=== PATIENT | male | born 1970 | race Caucasian/White ===

== ENCOUNTER 2017-03-27 18:47 | Emergency (ER) | payer MEDICARE ==
[~2017-03-27] VITALS: Ht 175.3 cm; Wt 107.8 kg
[2017-03-27 18:52] VITALS: TEMP 98.2
[2017-03-27 19:46] LABS: PROTHROMBIN TIME 11.3 SECONDS (9.7-12.8)
[2017-03-27 19:49] LABS: PARTIAL THROMBOPLASTIN TIME 30.4 SECONDS (26.0-37.0)
[2017-03-27 19:50] LABS: ADJUSTED CALCIUM 9.4 mg/dL (8.4-10.2); ALANINE AMINOTRANSFERASE 36 U/L (21-72); ALBUMIN 4.5 gm/dL (3.5-5.0); ALKALINE PHOSPHATASE 76 U/L (50-136); ANION GAP 10 mmol/L (7-16); BASO # 0.1 (0.0-0.2); BASO % 0.9 % (0.0-2.0); BILIRUBIN,TOTAL 0.6 mg/dL (0.0-1.0); BLOOD UREA NITROGEN 18 mg/dL (9-20); CALCIUM 9.8 mg/dL (8.4-10.2); CARBON DIOXIDE 27 mmol/L (22-30); CHLORIDE 102 mmol/L (98-107); CREATININE, serum 0.99 mg/dL (0.66-1.25); EOS # 0.3 (0.0-0.7); EOS % 3.8 % (0-4.0); GLUCOSE 95 mg/dL (74-106); GRAN # 5.2 (1.4-6.5); GRAN % 58.7 % (42.2-75.2); HEMATOCRIT 47.4 % (42.0-52.0); LYMPH # 2.5 (1.2-3.4); LYMPH % 28.3 % (20.0-51.0); MEAN CELL VOLUME 85 fl (80.0-100.0); MEAN CORPUSCULAR HEMOGLOBIN 29 pg (27.0-31.0); MEAN CORPUSCULAR HGB CONC 34 g/dl (33.0-37.0); MEAN PLATELET VOLUME 10.2 fl (7.4-10.4); MONO # 0.7 (0.1-0.6); PLATELET COUNT 375 K/mm3 (130-400); POTASSIUM 4.3 mmol/L (3.4-5.0); RED BLOOD COUNT 5.59 M/mm3 (4.20-5.60); SODIUM 138 mmol/L (137-145); TOTAL PROTEIN 7.5 gm/dL (6.4-8.2); WHITE BLOOD COUNT 8.9 K/mm3 (4.8-10.8)
[2017-03-27 20:01] LABS: TROPONIN-I < 0.012 ng/mL (0.000-0.034)
[2017-03-27 20:09] LABS: D-DIMER < 200.00 ng/mLDDu (200-230)
[2017-03-27] MEDS ORDERED: ANTIVERT 25MG25 MG PO (20:12)
[2017-03-27 21:06] VITALS: BP 108/81; PULSE 82
== END 2017-03-27 21:07 | disposition home or self-care (01) ==
LOC: COL.ER 18:47
PROVIDERS: Emergency Medicine
DX: H81.10 Benign paroxysmal vertigo, unspecified ear (principal)
CPT/HCPCS: J2765; J7030